=== PATIENT | female | born 1965 | race Caucasian/White ===

== ENCOUNTER → 2018-04-24 | Outpatient (CLI) | payer OTHER ==
--- NOTE | 2018-04-24 13:52 | RAD ---
ABDOMEN COMPLETE History: Abnormal liver function tests Comparison: None. Findings: Multiple sonographic images of the abdomen are submitted. Pancreas, abdominal aorta, and inferior vena cava are not well visualized due to bowel gas. There is mild coarsening of the echotexture of the liver, no focal hepatic lesion demonstrated. Right lobe of the liver measured about 13.3 cm longitudinal. Right kidney measured 11.2 x 4.6 x 5 cm. Left kidney measured 11.1 x 3.8 x 4.8 cm. There is no hydronephrosis of either kidney. Gallbladder is present without intraluminal abnormality, wall thickening, pericholecystic fluid. The spleen measured 10.1 cm. Common bile duct is within normal limits about 0.2 cm. Impression: 1. Midline structures are poorly visualized due to bowel gas. There is no abnormality of the gallbladder. There is possible mild hepatic steatosis. Electronically signed by: Freeman Hopkins MD (04/24/2018 1:49 PM) [id number]
== END | disposition home or self-care (01) ==
LOC: US 09:11
PROVIDERS: ATTEND Family Medicine
DX: R79.89 Other specified abnormal findings of blood chemistry (principal)
CPT/HCPCS: 76700